=== PATIENT | female | born 1960 | race Caucasian/White ===

== ENCOUNTER 2016-04-05 15:08 | Emergency (ER) | payer OTHER ==
[~2016-04-05] VITALS: Ht 170.2 cm; Wt 136.1 kg
--- NOTE | ~2016-04-05 | EKG ---
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
[~2016-04-05 15:08] MED LIST: ACIDOPHILUS LA1 EACH PO; ADVAIR 500-501 EACH INH; ALBUTEROL SUL5 MG/M1 INH; AMBIEN 10 MG TA10 MG PO; ASPIRIN EC325 M1 PO; ATIVAN0.5 MG PO; BENAZEPRIL HCL40 MG PO; CARAFATE 1 GM TA1 G1 PO; CEFTRIAXON2 GM/50 ML IVPB; CELEXA40 MG PO; CLARITIN10 MG PO; CLONIDINE HCL0.2 M2 PO; COLACE100 MG PO; DILAUDID 2 MG TA2 MG PO; DILAUDID 4 MG TA4 M1 PO; DOXYCYCLINE 10100 MG PO; FENTANYL PATCH75 MCG TRANSDERM; FLEXERIL PO; FLONASE 0.05%50 MCG NASAL; IBUPROFEN 800800 M1 PO; LISINOPRIL2.5 MG; LISINOPRIL40 MG PO; LOPERAMIDE2 MG PO; MUCINEX600 MG PO; NEURONTIN800 MG PO; OXYCODONE HCL15 MG PO; OXYCODONE HCL30 MG PO; PREDNISONE 10 M10 MG PO; PREDNISONE 20 M20 MG PO; PREDNISONE 5 MG5 M1 PO; PRILOSEC 20 MG20 MG PO; PROAIR HFA8.5 GM INH; PROTONIX40 M1 PO; PROVENTIL HFA6.7 G1 INH; PULMICORT0.5 MG/22 INH; RANITIDINE 150150 M1 PO; ROBAFEN DM COU118 ML PO; ROCEPHIN 11 GM/1001 IV; SINGULAIR 10 MG10 MG PO; VALIUM5 MG PO; WELLBUTRIN SR150 MG PO; XARELTO10 MG PO; ZANTAC 150MG T150 M1 PO; ZOFRAN4 MG PO
[2016-04-05 15:34] LABS: ABSOLUTE NEUTROPHILS 5.6 thou/uL (1.4-8.2); BASOPHILS 0.5 % (0.0-2.0); EOSINOPHILS 3.3 % (0.0-3.0); HEMATOCRIT 37.4 % (37.0-47.0); HEMOGLOBIN 12.4 gm/dL (12.0-15.0); LYMPHOCYTES 23.7 % (24.0-44.0); MCH 29.4 pg (26.0-34.0); MCHC 33.1 % (28.0-37.0); MCV 88.8 fL (80.0-100.0); MONOCYTES 7.3 % (1.0-8.0); PLATELET COUNT 213 thou/uL (150-400); POLYS 65.2 % (36.0-66.0); RBC 4.21 mil/uL (4.20-5.00); RDW 14.1 % (10.5-14.5); WBC 8.5 thou/uL (4.0-11.0)
[2016-04-05 15:35] LABS: MANUAL DIFF NO
[2016-04-05 15:42] LABS: ANION GAP 9 mmol/L (7-16); BUN 17 mg/dL (7-18); CHLORIDE 105 mmol/L (98-107); CO2 28 mmol/L (21-32); CREATININE 1.1 mg/dL (0.6-1.3); GLUCOSE 109 mg/dL (70-99); POTASSIUM 4.5 mmol/L (3.5-5.1); SODIUM 142 mmol/L (136-145)
[2016-04-05 15:50] LABS: ALBUMIN 3.3 g/dL (3.4-5.0); ALKALINE PHOSPHATASE 112 U/L (46-116); SGOT 23 U/L (15-37); SGPT 27 U/L (30-65); TOTAL BILIRUBIN 0.3 mg/dL (<0.1-1.0); TOTAL PROTEIN 7.2 g/dL (6.4-8.2); TROPONIN-I < 0.04 ng/mL (<0.04-0.07)
[2016-04-05] MEDS ORDERED: TESSALON PERLE100 MG PO (15:50)
[2016-04-05] MEDS ORDERED: COLACE100 MG PO (15:50)
[2016-04-05] MEDS ORDERED: CATAPRES0.2 M1 PO (15:50)
[2016-04-05] MEDS ORDERED: LIORESAL 10 MG10 MG PO (15:50)
[2016-04-05] MEDS ORDERED: BREO ELLIPTA 11 EACH IH (15:50)
[2016-04-05] MEDS ORDERED: ONDANSETRON HCL4 M2 PO (15:51)
== END 2016-04-05 18:12 | disposition home or self-care (01) ==
LOC: ER 15:08
PROVIDERS: Emergency Medicine
DX: R07.9 Chest pain, unspecified (principal); J45.909 Unspecified asthma, uncomplicated; K21.9 Gastro-esophageal reflux disease without esophagitis; I10 Essential (primary) hypertension; F32.9 Major depressive disorder, single episode, unspecified; F41.9 Anxiety disorder, unspecified; G47.30 Sleep apnea, unspecified; M79.7 Fibromyalgia; Z90.710 Acquired absence of both cervix and uterus; Z88.1 Allergy status to other antibiotic agents; Z88.6 Allergy status to analgesic agent

== ENCOUNTER 2016-09-27 04:43 | Emergency (ER) | payer OTHER ==
[~2016-09-27] VITALS: Ht 175.3 cm; Wt 120.2 kg
[~2016-09-27 04:43] MED LIST changes: +BREO ELLIPTA 11 EACH IH; +CATAPRES0.2 M1 PO; +LIORESAL 10 MG10 MG PO; +ONDANSETRON HCL4 M2 PO; +TESSALON PERLE100 MG PO
[2016-09-27] MEDS ORDERED: MULTI VITAMIN1 EACH PO (05:13)
[2016-09-27] MEDS ORDERED: ZESTRIL40 MG PO (05:13)
[2016-09-27] MEDS ORDERED: NORCO 5-325 TA1 EACH PO (06:13)
== END 2016-09-27 07:36 | disposition home or self-care (01) ==
LOC: ER 04:43
DX: S52.501A Unspecified fracture of the lower end of right radius, initial encounter for closed fracture (principal); S00.12XA Contusion of left eyelid and periocular area, initial encounter; J45.909 Unspecified asthma, uncomplicated; K21.9 Gastro-esophageal reflux disease without esophagitis; I10 Essential (primary) hypertension; F32.9 Major depressive disorder, single episode, unspecified; F41.9 Anxiety disorder, unspecified; M79.7 Fibromyalgia; G47.30 Sleep apnea, unspecified; G89.29 Other chronic pain; Z90.49 Acquired absence of other specified parts of digestive tract; Z90.710 Acquired absence of both cervix and uterus; Z98.890 Other specified postprocedural states; Z90.89 Acquired absence of other organs; Z96.653 Presence of artificial knee joint, bilateral; Z88.8 Allergy status to other drugs, medicaments and biological substances; Z88.1 Allergy status to other antibiotic agents; W01.198A Fall on same level from slipping, tripping and stumbling with subsequent striking against other object, initial encounter; Y93.89 Activity, other specified; Y92.89 Other specified places as the place of occurrence of the external cause; Y99.8 Other external cause status

== ENCOUNTER 2017-03-10 14:56 | Inpatient (IN) | payer OTHER ==
[~2017-03-10] VITALS: Ht 162.6 cm; Wt 149.0 kg
[2017-03-10] VITALS (17 sets, daily range): BP systolic 108–164; BP diastolic 45–113
--- NOTE | ~2017-03-10 | HC ---
[facility] [place] [address] CONSULTATION Name: GEETHA LOTT Room #: 201-P ADM IN M.R.#: [id number] Admission: 03/10/17 Attend Phys: Rich Shelley MD Discharge: Date of : 58 Report #: [id number] THIS REPORT FOR: //name// CC: Rich Wade DATE OF SERVICE: 03/16/2017 HISTORY OF PRESENT ILLNESS: The patient is a 49-year-old white female admitted with COPD exacerbation, pneumonia, coronary artery disease with elevated troponin. She was noted to have acute on chronic respiratory failure, morbid obesity. She is noted to have extensive pulmonary infiltrates, severe right-sided pneumonia with infiltrates noted right greater than left lung. Infectious Disease is involved as well as Pulmonary Medicine. She had acute renal insufficiency, which has resolved. She continues to desaturate with activity. We are seeing her in rehabilitation medicine consultation. PAST MEDICAL HISTORY: Includes morbid obesity. She has a history of gastric bypass, anxiety, depression, bilateral total knee replacements with prior explantation and reimplantation noted, history of fibromyalgia, obstructive sleep apnea on CPAP, asthma, and chronic pain. HABITS: Former tobacco use. No history of alcohol abuse. ALLERGIES: MULTIPLE ALLERGIES ARE NOTED. THESE DO INCLUDE BACTRIM AND TORECAN WELL A CLOTH TAPE AND PAPER TAPE ARE LISTED. MEDICATIONS: Please see the full medication listing. SOCIAL HISTORY: She lives in a house with her , 1 nimesh 2 steps. works during the day. She notes that they are in the process of moving and apparently will be moving next 03/24/2017. She was not on any home O2 premorbidly. Did not utilize gait aids. She notes that she has support with olndxe-nd-bdm, friends, daughter in [place]. REVIEW OF SYSTEMS: No current complaints of chest pain, shortness of breath or abdominal discomfort. PHYSICAL EXAMINATION: GENERAL: A 57-year-old obese white female in no obvious distress. VITAL SIGNS: Last recorded temperature 98.5, pulse 73, respirations 18, blood pressure 170/79. NEUROLOGIC: Alert. She is pleasant. She is a good historian. She is currently on 10 liters. She has been needing up to 10 liters and tends to desaturate some with activity. Facies are symmetric. She has functional range [facility] [address] [place] [address] CONSULTATION Name: GEETHA LOTT Room #: [facility] IN M.R.#: [id number] Admission: 03/10/17 Attend Phys: Rich Shelley MD Discharge: Date of : 58 Report #: [id number] of motion of both upper extremities with strength of grade 4+/5. DTRs are trace to 1. Lower extremities, prior knee incisions are well healed. No focal calf swelling. Tone is intact. Functional range of motion with strength grade 4+/5. Sit to stand is min assist. Gait 5 steps min assist. Again, she does tend to desaturate. ASSESSMENT: A 57-year-old white female with following problems: 1. Pulmonary rehabilitation. 2. Acute on chronic respiratory failure. 3. Severe right-sided pneumonia. 4. Chronic obstructive pulmonary disease exacerbation. 5. Extensive infiltrates, right greater than left lung. 6. Elevated BNP, thought to be multifactorial. 7. Morbid obesity. 8. Acute renal insufficiency that has resolved. 9. Prior bilateral knee replacements. 10. History of prior gastric bypass. 11. Anxiety and depression. 12. Fibromyalgia. 13. Chronic pain syndrome. 14. Sleep apnea. PLAN: The patient certainly could be a candidate for a short acute in-hospital inpatient rehabilitation stay. She is not crazy about going for rehabilitation, but understands that it may be indicated with her considerable medical complexity of the fact she is on significant oxygen and the close followup with the multiple interventional sale consultant physicians. We will consider her for a short acute in-hospital inpatient rehabilitation stay when medically cleared and if she is agreeable. She obviously wants to try to get home before she and her move the end of next week, but will need to see how she improves. We will be glad to follow along with you regarding her rehab therapy needs. At this point, I would anticipate a short acute in-hospital inpatient rehabilitation transfer when medically cleared and if patient is agreeable. <ELECTRONICALLY SIGNED> By: Ko Haas MD 03/20/17 1219 1331 1634 Ko Haas MD /[facility]
--- NOTE | ~2017-03-10 | EKG ---
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 : 1960 Requested By: Hina Tobar Order Number: [id number] MD: Dedrick Max Measurements Intervals [place] Rate: 102 P: 39 [place]: 152 QRS: 26 QRSD: 103 T: -20 QT: 358 QTc: 467 Interpretive Statements Sinus tachycardia Probable left ventricular hypertrophy Borderline T abnormalities, inferior leads Compared to ECG 04/05/2016 15:11:43 T-wave abnormality now present Electronically Signed On 03-10-2017 23:51:27 TOWEL SORTER by Dedrick Max [email or web address] <ELECTRONICALLY SIGNED> By: Dedrick aMx MD 03/10/17 2351 1515 1515 Dedrick Max MD /ZEINAB
--- NOTE | ~2017-03-10 | HC ---
[facility] [place] [address] CONSULTATION Name: GEETHA LOTT Room #: 236-P ADM IN M.R.#: [id number] Admission: 03/10/17 Attend Phys: Rich Shelley MD Discharge: Date of : 58 Report #: [id number] THIS REPORT FOR: //name// CC: Rich Wade TYPE OF REPORT: Pulmonary consultation. PRIMARY CARE PHYSICIAN: Omid Wade M.D. REFERRAL PHYSICIAN: Rich Shelley M.D. REASON FOR REFERRAL: Dyspnea. HISTORY OF PRESENT ILLNESS: The patient is a 57-year-old white female who presents to the Emergency Room with progressive dyspnea. She has been admitted for pneumonia. A pulmonary consultation was requested. The patient is followed longitudinally by Dr. Tito Verduzco. She has been followed for asthma and JIAN. She was last seen in the office in January 2017. She has been doing well until about 3-4 days ago when she started to develop dyspnea, cough and congestion. She called to the office. She was given Ceftin along with prednisone. She did not improve. With worsening symptoms, she presented to Emergency Room. She, otherwise, denies any chest pain, hemoptysis, nausea, vomiting or diarrhea. Chest x-ray performed shows patchy right-sided infiltrates. PAST MEDICAL HISTORY: Remarkable for asthma/COPD, chronic back pain, hypertension and sleep apnea on home CPAP. PAST SURGICAL HISTORY: Includes cholecystectomy; gastric bypass surgery; herniorrhaphy; hysterectomy; total knee replacement, bilateral and herniated disk resection. ALLERGIES: BACTRIM, which causes severe rash and TORECAN causes seizures. HOME MEDICATIONS: Lists are reviewed. This include fentanyl patch, ProAir, Neurontin, citalopram, Lotensin, nebulized albuterol, lorazepam, Flexeril, Dilaudid, Singulair, Protonix, Wellbutrin, Carafate, Lioresal, Breo Ellipta 100/25 mcg 1 puff once a day, clonidine 0.2 mg, Colace, Tessalon Perles, Zofran, Zestril and multivitamins. FAMILY HISTORY: Noncontributory for both parents alive. SOCIAL HISTORY: She has smoked about a pack a day for 20 years. She quit in [address] [address] CONSULTATION Name: GEETHA LOTT Room #: 236-P [facility] IN ..#: [id number] Admission: 03/10/17 Attend Phys: Rich Shelley MD Discharge: Date of : 58 Report #: [id number]. She denies any alcohol use. She is . REVIEW OF SYSTEMS: As mentioned above, otherwise 10-point system review negative. PHYSICAL EXAMINATION: GENERAL: She is awake and alert, in moderate distress. VITAL SIGNS: Temperature is 98.9 degrees Fahrenheit, pulse is 107, respiratory rate is 38 and saturation is 86%. HEENT: Normocephalic and atraumatic. NECK: Supple, without any lymphadenopathy or thyromegaly. CHEST: Breath sounds decreased bilaterally with mild coarse breath sounds. Mild wheezes are heard in both lung kilpatrick. CARDIOVASCULAR: Normal S1 and S2. There are no obvious murmurs or gallop. Pulses are 2+/4+ bilaterally. BREASTS: Exam is deferred. ABDOMEN: Mildly obese, soft and nontender. No organomegaly or masses felt. GENITOURINARY: Deferred. RECTAL: Deferred. EXTREMITIES: There is no edema, cyanosis or clubbing. RADIOLOGICAL DATA: Chest x-ray as mentioned above showing patchy right-sided infiltrates, mild increase in bilateral perihilar interstitial prominence and borderline cardiomegaly. LABORATORY DATA: BNP is 9600. Electrolytes: Sodium 136, potassium 4.9, chloride 103, CO2 26, BUN is 42 and creatinine is 1.5. Liver function enzymes are mildly elevated. WBC 14,900, hemoglobin 11.4 and platelets are normal. Bandemia is present with 10% bands. Arterial blood gas revealed pH 7.38, pCO2 of 42 and pO2 48 on 4 liters of O2. IMPRESSION: 1. Acute hypoxic respiratory failure in this 57-year-old white female. Chest x-ray shows right patchy infiltrates. She has a history of asthma and sleep apnea. Etiology is probably related to pneumonia involving the right lower lobe. The patient should be covered for community-acquired pneumonia. 2. Asthma/chronic obstructive pulmonary disease exacerbation. 3. Obstructive sleep apnea, on home continuous positive airway pressure. 4. Nxfey-nk-pzbhaeo kidney disease, kidney injury. Prior creatinine has been 1.1 though in the past, her creatinine has been higher and today's creatinine is 1.5. 5. Chronic pain. 6. Hypertension. 7. Obesity. RECOMMENDATION: We would suggest broad-spectrum antibiotics to cover for [address] [place] [address] CONSULTATION Name: GEETHA LOTT Room #: 236-P [facility] IN M.R.#: [id number] Admission: 03/10/17 Attend Phys: Rich Shelley MD Discharge: Date of : 58 Report #: [id number] community-acquired pneumonia. Bronchodilators and corticosteroids will be initiated. DVT and GI prophylaxis will also be addressed. Agree with admitting the patient to the ICU given profound hypoxia. The patient does have home CPAP. Mild BiPAP can be used p.r.n. Thank you for this consultation. <ELECTRONICALLY SIGNED> By: Cr Zhou MD 03/12/17 1155 1708 2127 Cr Zhou MD /nt
--- NOTE | ~2017-03-10 | 2DMMODE ---
[facility] [address] [facility] [place] [address] 2 D/M-MODE ECHOCARDIOGRAM Name: GEETHA LOTT Room #: 236-P ADM IN .R.#: [id number] Admission: 03/10/17 Attend Phys: Rich Shelley MD Discharge: Date of : 58 Date of Service: 03/11/17 1457 Report #: [id number] THIS REPORT FOR: //name// APPROVED REPORT Study performed: 03/11/2017 09:49:12 EXAM: Comprehensive 2D, Doppler, and color-flow Echocardiogram Patient Location: Bedside Room #: 236 Status: on-call BSA: 2.34 HR: 100 bpm BP: 152/78 mmHg Rhythm: Tachycardia Other Information Study Quality: Adequate Risk Factors: Cardiac Risk Factors: HTN Indications CAD Chest Pain Elevated Troponin 2D Dimensions LVEF(%): 68.58 (>50%) IVSd: 13.33 (7-11mm) LVOT Diam: 20.00 (18-24mm) LVDd: 40.79 mm PWd: 11.68 (7-11mm) Ascending Ao: 31.73 (22-36mm) LVDs: 25.32 (25-40mm) Aortic Root: 30.63 mm LV Single Plane 4CH: 63.00 % Schmidt's LVEF: 68.58 % Volumes Left Atrial Volume (Systole) Single Plane 4CH: 47.65 mL Single Plane 2CH: 53.94 mL LA ESV Index: 28.00 mL/m2 Aortic Valve AoV Peak Angel.: 1.89 m/s AO Peak Gr.: 14.32 mmHg LVOT Max P.72 mmHg [facility] [address] [place] [address] 2 D/M-MODE ECHOCARDIOGRAM Name: GEETHA LOTT Room #: 236-P [facility] IN ..#: [id number] Admission: 03/10/17 Attend Phys: Rich Shelley MD Discharge: Date of : 58 Date of Service: 03/11/17 1457 Report #: [id number] LVOT Max V: 1.20 m/s CAMILO Vmax: 1.93 cm2 Mitral Valve E/A Ratio: 0.8 MV Decel. Time: 149.83 ms MV E Max Angel.: 1.08 m/s MV A Angel.: 1.37 m/s MV PHT: 43.45 ms IVRT: 51.90 ms TDI E/Lateral E': 9.00 E/Medial E': 9.00 Medial E' Angel.: 0.12 m/s Lateral E' Angel.: 0.12 m/s Pulmonary Valve PV Peak Angel.: 1.26 m/s PV Peak Gr.: 6.35 mmHg Tricuspid Valve RAP Estimate: 10.00 mmHg Left Ventricle The left ventricle is normal size. There is normal LV segmental wall motion. Mild concentric left ventricular hypertrophy. Left ventricular systolic function is normal. The left ventricular ejection fraction is within the normal range. LVEF is 65-70%. Grade I - abnormal relaxation pattern. Right Ventricle The right ventricle is normal size. The right ventricular systolic function is normal. Atria The left atrium size is normal. Right atrium is dilated. Aortic Valve The aortic valve is normal in structure. No aortic regurgitation is present. There is no aortic valvular stenosis. Mitral Valve The mitral valve is normal in structure. There is no mitral valve regurgitation noted. No evidence of mitral valve stenosis. Tricuspid Valve The tricuspid valve is normal in structure. There is no tricuspid [facility] [address] [place] [address] 2 D/M-MODE ECHOCARDIOGRAM Name: GEETHA LOTT Room #: 236-P [facility] IN ..#: [id number] Admission: 03/10/17 Attend Phys: Rich Shelley MD Discharge: Date of : 58 Date of Service: 03/11/17 1457 Report #: [id number] valve regurgitation noted. Pulmonic Valve The pulmonary valve is normal in structure. There is no pulmonic valvular regurgitation. Great Vessels The aortic root is normal in size. IVC is normal in size and collapses <50% with inspiration. Pericardium There is no pericardial effusion. <Conclusion> The left ventricle is normal size. LVEF is 65-70%. Right atrium is dilated. The aortic valve is normal in structure. The mitral valve is normal in structure. The tricuspid valve is normal in structure. The pulmonary valve is normal in structure. There is no pericardial effusion. <ELECTRONICALLY SIGNED> By: Isaías Logan MD 03/11/17 1457 145 145 Isaías Logan MD /INF
--- NOTE | ~2017-03-10 | HC ---
[facility] [place] [address] CONSULTATION Name: GEETHA LOTT Room #: 236-P ADM IN M.R.#: [id number] Admission: 03/10/17 Attend Phys: Rich Shelley MD Discharge: Date of : 58 Report #: [id number] THIS REPORT FOR: //name// CC: Rich Wade MD DATE OF SERVICE: 03/13/2017 ATTENDING PHYSICIAN: Dr. Shelley. CONSULTATION REQUESTED BY: Dr. Zhou. REASON FOR CONSULTATION: Pneumonia. HISTORY OF PRESENT ILLNESS: This is a 57-year-old white woman admitted through the emergency room with history of progressive difficulty in breathing and failure to improve on an outpatient basis after treatment with Z-ELIE and a Medrol Dosepak. The patient is diagnosed to have right-sided pneumonia. She is treated with a combination of Rocephin a gram daily and Zithromax 500 mg daily. I discussed the patient's situation with her nurse yesterday, added vancomycin, and requested several tests. The patient relates she is feeling some better, still requiring high flow supplemental oxygen. She denies having had fevers during the entire episode, relates this problem ongoing for several weeks now. She relates she has chronic lung disease and Dr. 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 ALLERGIES: SULFA DRUGS, BACTRIM, and TAPE. MEDICATIONS: She is currently on treatment with vancomycin 1 g IV every 8 hours, ceftriaxone 1 g IV daily since March 11, and again on Zithromax 500 mg IV daily since the of the month. She is also on treatment with guaifenesin, amlodipine, hydralazine p.r.n., fentanyl patch 75 mcg every 72 hours for chronic back pain, lorazepam p.r.n., multivitamin daily, montelukast, bupropion, famotidine, pantoprazole, gabapentin, Solu-Medrol 80 mg IV every 8 hours, metoclopramide, Carafate, docusate, citalopram, lisinopril, clonidine, enoxaparin subq, ondansetron p.r.n., Atrovent, albuterol inhalation treatments, zolpidem p.r.n., hydrocodone p.r.n., baclofen 3 times daily 10 mg, cyclobenzaprine 10 mg q.4h p.r.n., intravenous fluids, p.r.n. glucose glucagon. PAST MEDICAL HISTORY: Morbid obesity. History of gastric bypass surgery. Obstructive sleep apnea. Hysterectomy. Bilateral total knee replacement, right total knee replacement infection with ____, requiring multiple surgical interventions. Chronic back pain, requiring narcotics. [address] [address] CONSULTATION Name: GEETHA LOTT Room #: 236-P [facility] IN M.R.#: [id number] Admission: 03/10/17 Attend Phys: Rich Shelley MD Discharge: Date of : 58 Report #: [id number] SOCIAL HISTORY: See H and P, old records. FAMILY HISTORY: See H and P, old records. REVIEW OF SYSTEMS: Essentially noncontributory besides the chronic pain and respiratory issues. PHYSICAL EXAMINATION: GENERAL: Chronically ill-appearing woman, afebrile since admission. VITAL SIGNS: Temperature 97, pulse 87, respirations 20, BP 152/65, height 5 feet 4 inches, and weight 309 pounds. HEENT: Pupils reactive. Conjunctivae are normal. Mouth, edentulous, wearing artificial teeth, none at present. NECK: Short, difficult to examine, no palpable masses on the thyroid, no lymphadenopathy. LUNGS: Decreased breath sounds and bronchial breath sounds right lung and upper lung kilpatrick posteriorly. HEART: S1, S2. No gallop or murmur. ABDOMEN: Obese, soft, no masses or megaly, surgical scar. PELVIC: Deferred. RECTAL: Deferred. EXTREMITIES: Reveal surgical scars both knees. The right knee scar compatible with multiple previous surgical interventions. NEUROLOGIC: Grossly within normal limits. LABORATORY DATA: On admission, BUN 42, creatinine 1.5, repeat today, BUN is 30, creatinine 1, glucose 165. Troponin elevated on admission. NT-proBNP elevated on admission 9655. WBC on admission 14,900, hemoglobin 11.4 g/dL, repeat today the white blood cell count is 11,400 and hemoglobin 10.4 g/dL, platelets 179,000, white blood cell count differential revealed 84% segmented neutrophils. TSH normal. Hemoglobin A1c normal. Procalcitonin elevated at 12.179 ng/mL, elevated. The MRSA screen requested pending. ABGs on March 10, revealed pH 7.38, pCO2 of 42, pO2 48, and bicarbonate 24, these set of gases on 4 liters oxygen nasal cannula. MICROBIOLOGY DATA: The blood cultures negative. The urine legionella antigen not detected. Urine Streptococcus pneumoniae antigen not detected. A sputum Gram stain revealed many WBC's, no organism. RADIOLOGY EVALUATION: The chest x-ray revealed cardiomegaly and worsening right-sided pulmonary infiltrate and atelectasis. ASSESSMENT: 1. Worsening right-sided pulmonary infiltrate, atelectasis. 2. Chronic obstructive pulmonary disease. 3. Obstructive sleep apnea. [address] [address] CONSULTATION Name: GEETHA LOTT Room #: 236-P ADM IN M.R.#: [id number] Admission: 03/10/17 Attend Phys: Rich Shelley MD Discharge: Date of : 58 Report #: [id number] 4. Acute kidney injury on chronic kidney disease, improved. 5. Hypertension. 6. Chronic pain syndrome. 7. Elevation of serum troponin. 8. Elevation of BNP and normal ejection fraction, suspect diastolic heart failure. SUGGESTIONS: Recommend continue coverage with vancomycin, repeat MRSA screen as already requested to nurse and apparently not done yet. Being the Streptococcus pneumoniae and legionella antigen negative, doubt we are dealing with that kind of infection. Of course, we can have aspiration pneumonia in a patient with chronic narcotic dependency and obstructive sleep apnea. We will discontinue Rocephin and start meropenem 500 mg IV every 8 hours. We will discuss situation with Dr. Zhou her pulmonary physician following the patient now and try to determine whether bronchoscopy may be in order. Dr. Cr Zhou and Dr. Shelley, thank you for requesting my suggestions in the care of your patient. <ELECTRONICALLY SIGNED> By: Chandrakant Max MD 03/14/17 1032 0952 1135 Chandrakant Mxa MD /nt
[~2017-03-10 14:56] MED LIST changes: +MULTI VITAMIN1 EACH PO; +NORCO 5-325 TA1 EACH PO; +ZESTRIL40 MG PO
[2017-03-10 15:35] LABS: ABG SAMPLE TYPE ARTERIAL; BE(vivo) -0.4 mmol/L (-2 to +3); HCO3 24.7 mmol/L (22.0-26.0); LACTATE 2.06 mmol/L (0.5-2.0); O2(CT) 14.3 mL/dL (15.0-23.0); O2Hb 83.3 % (92.0-98.0); PCO2 42.3 mmHg (35.0-45.0); PO2 48.1 mmHg (80.0-100.0); STICK SITE L.BRACHIAL; pH 7.384 (7.360-7.450); sO2 83.3 % (92.0-98.0)
[2017-03-10 15:40] LABS: HEMATOCRIT 34.9 % (37.0-47.0); HEMOGLOBIN 11.4 gm/dL (12.0-15.0); MANUAL DIFF YES; MCH 28.4 pg (26.0-34.0); MCHC 32.5 g/dL (28.0-37.0); MCV 87.5 fL (80.0-100.0); PLATELET COUNT 208 thou/uL (150-400); RBC 3.99 mil/uL (4.20-5.00); RDW 15.4 % (10.5-14.5); WBC 14.9 thou/uL (4.0-11.0)
[2017-03-10 15:57] LABS: CALCIUM 8.9 mg/dL (8.5-10.1); CREATININE 1.5 mg/dL (0.6-1.0); POTASSIUM 4.9 mmol/L (3.5-5.1)
[2017-03-10 16:00] LABS: ALBUMIN 2.8 g/dL (3.4-5.0); TOTAL BILIRUBIN 0.4 mg/dL (<0.1-1.0); TOTAL PROTEIN 7.4 g/dL (6.4-8.2)
[2017-03-10 16:05] LABS: TROPONIN-I 1.11 ng/mL (<0.06)
[2017-03-10 16:10] LABS: ABSOLUTE NEUTROPHILS 12.8 thou/uL (1.4-8.2); TOTAL CELL COUNT 100
[2017-03-11] VITALS (33 sets, daily range): BP systolic 113–163; BP diastolic 60–84
[2017-03-11 03:31] LABS: ABSOLUTE NEUTROPHILS 9.9 thou/uL (1.4-8.2); BASOPHILS 0.2 % (0.0-2.0); EOSINOPHILS 0.1 % (0.0-3.0); HEMATOCRIT 33.6 % (37.0-47.0); HEMOGLOBIN 10.9 gm/dL (12.0-15.0); LYMPHOCYTES 9.5 % (24.0-44.0); MCH 28.2 pg (26.0-34.0); MCHC 32.3 g/dL (28.0-37.0); MCV 87.4 fL (80.0-100.0); MONOCYTES 2.6 % (1.0-8.0); PLATELET COUNT 189 thou/uL (150-400); POLYS 87.6 % (36.0-66.0); RBC 3.85 mil/uL (4.20-5.00); RDW 15.3 % (10.5-14.5); WBC 11.3 thou/uL (4.0-11.0)
[2017-03-11 03:32] LABS: MANUAL DIFF NO
[2017-03-11 03:36] LABS: CALCIUM 8.8 mg/dL (8.5-10.1); CREATININE 1.3 mg/dL (0.6-1.0); POTASSIUM 4.6 mmol/L (3.5-5.1)
[2017-03-11 05:09] LABS: GLYCOHEMOGLOBIN (HGB A1C) 5.5 % (4.8-5.6)
[2017-03-12] VITALS (27 sets, daily range): BP systolic 124–175; BP diastolic 42–90
[2017-03-12 06:52] LABS: HEMATOCRIT 33.6 % (37.0-47.0); HEMOGLOBIN 10.9 gm/dL (12.0-15.0); MCH 28.1 pg (26.0-34.0); MCHC 32.3 g/dL (28.0-37.0); MCV 87.1 fL (80.0-100.0); PLATELET COUNT 188 thou/uL (150-400); RBC 3.86 mil/uL (4.20-5.00); RDW 15.9 % (10.5-14.5); WBC 13.1 thou/uL (4.0-11.0)
[2017-03-12 06:57] LABS: MANUAL DIFF YES
[2017-03-12 07:06] LABS: CALCIUM 9.2 mg/dL (8.5-10.1); POTASSIUM 4.3 mmol/L (3.5-5.1)
[2017-03-12 10:13] LABS: ABSOLUTE NEUTROPHILS 11.4 thou/uL (1.4-8.2); ANISOCYTOSIS 1+; TOTAL CELL COUNT 100
[2017-03-13] VITALS (25 sets, daily range): BP systolic 94–186; BP diastolic 58–100
[2017-03-13 05:02] LABS: ABSOLUTE NEUTROPHILS 9.6 thou/uL (1.4-8.2); BASOPHILS 0.1 % (0.0-2.0); EOSINOPHILS 0.1 % (0.0-3.0); HEMATOCRIT 32.9 % (37.0-47.0); HEMOGLOBIN 10.4 gm/dL (12.0-15.0); LYMPHOCYTES 9.2 % (24.0-44.0); MCH 27.6 pg (26.0-34.0); MCHC 31.5 g/dL (28.0-37.0); MCV 87.6 fL (80.0-100.0); MONOCYTES 6.3 % (1.0-8.0); PLATELET COUNT 179 thou/uL (150-400); POLYS 84.3 % (36.0-66.0); RBC 3.76 mil/uL (4.20-5.00); RDW 16.2 % (10.5-14.5); WBC 11.4 thou/uL (4.0-11.0)
[2017-03-13 05:04] LABS: MANUAL DIFF NO
[2017-03-13 05:07] LABS: CALCIUM 8.6 mg/dL (8.5-10.1); POTASSIUM 4.6 mmol/L (3.5-5.1)
[2017-03-14] VITALS (21 sets, daily range): BP systolic 124–180; BP diastolic 61–90
[2017-03-14 05:17] LABS: WBC 12.4 thou/uL (4.0-11.0)
[2017-03-14 05:19] LABS: HEMATOCRIT 32.7 % (37.0-47.0); HEMOGLOBIN 10.7 gm/dL (12.0-15.0); MCH 28.7 pg (26.0-34.0); MCHC 32.8 g/dL (28.0-37.0); MCV 87.4 fL (80.0-100.0); PLATELET COUNT 186 thou/uL (150-400); RBC 3.74 mil/uL (4.20-5.00); RDW 15.5 % (10.5-14.5)
[2017-03-14 05:20] LABS: MANUAL DIFF YES
[2017-03-14 05:26] LABS: CALCIUM 8.6 mg/dL (8.5-10.1); CREATININE 0.8 mg/dL (0.6-1.0); POTASSIUM 4.9 mmol/L (3.5-5.1)
[2017-03-14 05:35] LABS: ABG SAMPLE TYPE ARTERIAL; BE(vivo) 0.8 mmol/L (-2 to +3); HCO3 26.3 mmol/L (22.0-26.0); LACTATE 1.25 mmol/L (0.5-2.0); O2(CT) 14.9 mL/dL (15.0-23.0); O2Hb 89.6 % (92.0-98.0); PCO2 45.5 mmHg (35.0-45.0); PO2 60.3 mmHg (80.0-100.0); pH 7.379 (7.360-7.450); sO2 90.5 % (92.0-98.0); tCO2 27.6 mmol/L (24.0-30.0)
[2017-03-14 05:41] LABS: STICK SITE L.RADIAL
[2017-03-14 07:16] LABS: ABSOLUTE NEUTROPHILS 8.8 thou/uL (1.4-8.2); ANISOCYTOSIS SLIGHT; ATYPICAL LYMPHS 1 %; METAMYELOCYTES 4 %; MYELOCYTES 2 %; NUCLEATED RBCS 2 /100WBC; TOTAL CELL COUNT 100
[2017-03-15 03:10] VITALS: BP 172/73
[2017-03-15 05:24] LABS: HEMATOCRIT 34.1 % (37.0-47.0); HEMOGLOBIN 10.9 gm/dL (12.0-15.0); MCH 27.6 pg (26.0-34.0); MCHC 31.8 g/dL (28.0-37.0); MCV 86.8 fL (80.0-100.0); PLATELET COUNT 211 thou/uL (150-400); RBC 3.93 mil/uL (4.20-5.00); RDW 15.8 % (10.5-14.5); WBC 14.3 thou/uL (4.0-11.0)
[2017-03-15 05:26] LABS: MANUAL DIFF YES
[2017-03-15 05:31] LABS: CALCIUM 8.6 mg/dL (8.5-10.1); CREATININE 0.8 mg/dL (0.6-1.0); POTASSIUM 4.9 mmol/L (3.5-5.1)
[2017-03-15 07:07] VITALS: BP 173/70
[2017-03-15 08:00] LABS: ABSOLUTE NEUTROPHILS 11.4 thou/uL (1.4-8.2); ANISOCYTOSIS 1+; METAMYELOCYTES 3 %; MYELOCYTES 2 %; TOTAL CELL COUNT 100
[2017-03-15 08:01] LABS: POLYCHROMASIA OCCASIONAL
[2017-03-15 11:41] VITALS: BP 141/64
[2017-03-15 15:03] VITALS: BP 138/79
[2017-03-15 20:02] VITALS: BP 153/82
[2017-03-16 04:46] LABS: HEMATOCRIT 33.8 % (37.0-47.0); HEMOGLOBIN 10.9 gm/dL (12.0-15.0); MCH 28.2 pg (26.0-34.0); MCHC 32.3 g/dL (28.0-37.0); MCV 87.2 fL (80.0-100.0); RBC 3.88 mil/uL (4.20-5.00); RDW 15.9 % (10.5-14.5); WBC 17.2 thou/uL (4.0-11.0)
[2017-03-16 04:47] VITALS: BP 138/83
[2017-03-16 05:02] LABS: CALCIUM 8.6 mg/dL (8.5-10.1); CREATININE 0.7 mg/dL (0.6-1.0)
[2017-03-16 07:02] VITALS: BP 149/82
[2017-03-16 11:53] VITALS: BP 170/79
[2017-03-16 16:00] VITALS: BP 164/69
[2017-03-16 19:16] VITALS: BP 197/95
[2017-03-17 00:18] VITALS: BP 153/80
[2017-03-17 03:44] VITALS: BP 134/72
[2017-03-17 04:50] LABS: ABSOLUTE NEUTROPHILS 14.9 thou/uL (1.4-8.2); HEMATOCRIT 35.7 % (37.0-47.0); HEMOGLOBIN 11.4 gm/dL (12.0-15.0); LYMPHOCYTES 7.6 % (24.0-44.0); MCH 28.2 pg (26.0-34.0); MCHC 31.9 g/dL (28.0-37.0); MCV 88.3 fL (80.0-100.0); MONOCYTES 3.3 % (1.0-8.0); PLATELET COUNT 238 thou/uL (150-400); POLYS 89.1 % (36.0-66.0); RBC 4.04 mil/uL (4.20-5.00); WBC 16.7 thou/uL (4.0-11.0)
[2017-03-17 05:37] LABS: MANUAL DIFF NO
[2017-03-17 05:41] LABS: CALCIUM 8.5 mg/dL (8.5-10.1); CREATININE 0.8 mg/dL (0.6-1.0)
[2017-03-17 07:10] VITALS: BP 151/79
[2017-03-17 11:02] VITALS: BP 117/54
[2017-03-17 15:06] VITALS: BP 159/95
[2017-03-17 19:30] VITALS: BP 166/78
[2017-03-18 02:39] LABS: CALCIUM 8.7 mg/dL (8.5-10.1); CREATININE 0.8 mg/dL (0.6-1.0); POTASSIUM 5.2 mmol/L (3.5-5.1)
[2017-03-18 02:41] LABS: HEMATOCRIT 37.2 % (37.0-47.0); HEMOGLOBIN 11.8 gm/dL (12.0-15.0); MCH 27.9 pg (26.0-34.0); MCHC 31.7 g/dL (28.0-37.0); PLATELET COUNT 269 thou/uL (150-400); RBC 4.23 mil/uL (4.20-5.00); RDW 15.8 % (10.5-14.5); WBC 17.7 thou/uL (4.0-11.0)
[2017-03-18 02:42] LABS: MANUAL DIFF YES
[2017-03-18 04:00] VITALS: BP 137/74
[2017-03-18 04:36] LABS: ABSOLUTE NEUTROPHILS 16.6 thou/uL (1.4-8.2); METAMYELOCYTES 1 %; TOTAL CELL COUNT 100
[2017-03-18 08:18] VITALS: BP 157/90
[2017-03-18 11:50] VITALS: BP 157/81
[2017-03-18 15:30] VITALS: BP 145/88
[2017-03-18 18:52] VITALS: BP 177/97
[2017-03-19 02:52] VITALS: BP 135/77
[2017-03-19 04:07] LABS: HEMATOCRIT 33.9 % (37.0-47.0); MCH 28.5 pg (26.0-34.0); MCHC 32.4 g/dL (28.0-37.0); PLATELET COUNT 207 thou/uL (150-400); RBC 3.85 mil/uL (4.20-5.00); RDW 16.1 % (10.5-14.5); WBC 12.7 thou/uL (4.0-11.0)
[2017-03-19 04:08] LABS: MANUAL DIFF YES
[2017-03-19 04:28] LABS: CALCIUM 8.4 mg/dL (8.5-10.1); CREATININE 0.8 mg/dL (0.6-1.0); POTASSIUM 4.7 mmol/L (3.5-5.1)
[2017-03-19 04:56] LABS: ABSOLUTE NEUTROPHILS 11.3 thou/uL (1.4-8.2); ANISOCYTOSIS 1+; LARGE PLATELETS OCCASIONAL; POLYCHROMASIA OCCASIONAL; TOTAL CELL COUNT 100
[2017-03-19 09:09] VITALS: BP 133/78
[2017-03-19 11:30] VITALS: BP 148/88
[2017-03-19 16:00] VITALS: BP 158/73
[2017-03-19 19:17] VITALS: BP 146/83
[2017-03-20 04:00] VITALS: BP 137/90
[2017-03-20 07:59] VITALS: BP 114/62
[2017-03-20] MEDS ORDERED: PREDNISONE 20 M20 M1 PO ×2 (10:23→15:04)
[2017-03-20 12:08] VITALS: BP 121/59
[2017-03-20 14:04] VITALS: BP 121/59
[2017-03-22 01:11] LABS: INFLUENZA B Negative (Negative); METAPNEUMOVIRUS Negative (Negative)
== END 2017-03-20 15:10 | disposition home health service (06) | DRG 177 ==
LOC: ER 14:56 → EROBS 16:20 → ICU 16:20 → 2N 03-14 15:14
PROVIDERS: Family Medicine; Internal Medicine Endocrinology, Diabetes & Metabolism; Internal Medicine Pulmonary Disease; Nurse Practitioner Family; Specialist
PROC: 05HB33Z Insertion of Infusion Device into Right Basilic Vein, Percutaneous Approach (ICD-10-PCS; principal; 2017-03-12)
PROC: B54MZZA Ultrasonography of Right Upper Extremity Veins, Guidance (ICD-10-PCS; principal; 2017-03-12)
PROC: 5A09357 Assistance with Respiratory Ventilation, Less than 24 Consecutive Hours, Continuous Positive Airway Pressure (ICD-10-PCS; 2017-03-14)
PROC: 5A09357 Assistance with Respiratory Ventilation, Less than 24 Consecutive Hours, Continuous Positive Airway Pressure (ICD-10-PCS; 2017-03-15)
PROC: 5A09357 Assistance with Respiratory Ventilation, Less than 24 Consecutive Hours, Continuous Positive Airway Pressure (ICD-10-PCS; 2017-03-16)
PROC: 5A09357 Assistance with Respiratory Ventilation, Less than 24 Consecutive Hours, Continuous Positive Airway Pressure (ICD-10-PCS; 2017-03-17)
PROC: 5A09357 Assistance with Respiratory Ventilation, Less than 24 Consecutive Hours, Continuous Positive Airway Pressure (ICD-10-PCS; 2017-03-18)
PROC: 5A09357 Assistance with Respiratory Ventilation, Less than 24 Consecutive Hours, Continuous Positive Airway Pressure (ICD-10-PCS; 2017-03-19)
PROC: 5A09357 Assistance with Respiratory Ventilation, Less than 24 Consecutive Hours, Continuous Positive Airway Pressure (ICD-10-PCS; 2017-03-20)
DX: J69.0 Pneumonitis due to inhalation of food and vomit (principal); J96.21 Acute and chronic respiratory failure with hypoxia; N17.9 Acute kidney failure, unspecified; J44.1 Chronic obstructive pulmonary disease with (acute) exacerbation; Z68.43 Body mass index [BMI] 50.0-59.9, adult; J98.11 Atelectasis; J45.901 Unspecified asthma with (acute) exacerbation; K21.9 Gastro-esophageal reflux disease without esophagitis; F41.9 Anxiety disorder, unspecified; F32.9 Major depressive disorder, single episode, unspecified; G89.29 Other chronic pain; N18.9 Chronic kidney disease, unspecified; M54.9 Dorsalgia, unspecified; G47.33 Obstructive sleep apnea (adult) (pediatric); E66.01 Morbid (severe) obesity due to excess calories; Z96.653 Presence of artificial knee joint, bilateral; M79.7 Fibromyalgia; I12.9 Hypertensive chronic kidney disease with stage 1 through stage 4 chronic kidney disease, or unspecified chronic kidney disease; Z79.899 Other long term (current) drug therapy; Z88.1 Allergy status to other antibiotic agents; Z88.8 Allergy status to other drugs, medicaments and biological substances; Z90.49 Acquired absence of other specified parts of digestive tract; Z98.84 Bariatric surgery status; Z90.710 Acquired absence of both cervix and uterus; Z87.891 Personal history of nicotine dependence; Z88.2 Allergy status to sulfonamides; Z82.49 Family history of ischemic heart disease and other diseases of the circulatory system; Z91.09 Other allergy status, other than to drugs and biological substances
CPT/HCPCS: 10078; 10081; 27000

== ENCOUNTER → 2017-06-07 | Outpatient (CLI) | payer OTHER ==
[~2017-06-07] MED LIST changes: +PREDNISONE 20 M20 M1 PO
== END ==
LOC: RAD 12:41
DX: I51.7 Cardiomegaly (principal)

== ENCOUNTER 2018-03-05 14:34 | Inpatient (IN) | payer OTHER ==
[~2018-03-05] VITALS: Ht 170.2 cm; Wt 137.0 kg
[2018-03-05 15:18] VITALS: BP 151/81
[2018-03-05 16:47] LABS: ABSOLUTE NEUTROPHILS 7.8 thou/uL (1.4-8.2); BASOPHILS 0.1 % (0.0-2.0); EOSINOPHILS 0.2 % (0.0-3.0); HEMATOCRIT 37.9 % (37.0-47.0); HEMOGLOBIN 12.5 gm/dL (12.0-15.0); MCH 29.2 pg (26.0-34.0); MCHC 33.1 g/dL (28.0-37.0); MCV 88.2 fL (80.0-100.0); MONOCYTES 8.7 % (1.0-8.0); PLATELET COUNT 203 thou/uL (150-400); RDW 15.5 % (10.5-14.5); WBC 10.5 thou/uL (4.0-11.0)
[2018-03-05 17:01] LABS: CALCIUM 9.2 mg/dL (8.5-10.1); CREATININE 0.9 mg/dL (0.6-1.0); MAGNESIUM 1.7 mg/dL (1.8-2.4); POTASSIUM 3.9 mmol/L (3.5-5.1); TOTAL BILIRUBIN 0.5 mg/dL (<0.1-1.0); TOTAL PROTEIN 7.6 g/dL (6.4-8.2)
[2018-03-05 20:11] LABS: URINE BILIRUBIN NEGATIVE (Negative); URINE BLOOD NEGATIVE (Negative); URINE CLARITY CLEAR; URINE COLOR YELLOW; URINE GLUCOSE-RANDOM* NEGATIVE (Negative); URINE KETONES NEGATIVE (Negative); URINE LEUKOCYTES-REFLEX NEGATIVE (Negative); URINE NITRITE-REFLEX NEGATIVE (Negative); URINE PROTEIN (DIPSTICK) NEGATIVE (Negative); URINE SPECIFIC GRAVITY <= 1.005 (1.005-1.035); URINE UROBILINOGEN 0.2 E.U./dl (0.2-1.0)
[2018-03-05 20:16] VITALS: BP 134/92
[2018-03-05] MEDS ORDERED: ASPIR 8181 M1 PO (20:25)
[2018-03-05] MEDS ORDERED: TESSALON PERLE100 MG PO (20:25)
[2018-03-05] MEDS ORDERED: BUSPIRONE HCL10 MG PO (20:26)
[2018-03-05] MEDS ORDERED: CYMBALTA30 MG PO (20:26)
[2018-03-05] MEDS ORDERED: FLONASE 0.05%50 MCG NASAL (20:27)
[2018-03-05] MEDS ORDERED: ZANTAC 150MG T150 MG PO (20:28)
[2018-03-05] MEDS ORDERED: ADVAIR HFA 230M12 GM INH (20:28)
[2018-03-05] MEDS ORDERED: LEVOTHYROXINE100 MC1 PO (20:30)
[2018-03-05] MEDS ORDERED: VITAMIN D5000 UNIT PO (20:31)
[2018-03-05 23:31] VITALS: BP 144/87
[2018-03-06 03:14] VITALS: BP 112/80
[2018-03-06 03:24] LABS: CALCIUM 8.9 mg/dL (8.5-10.1); CREATININE 1.1 mg/dL (0.6-1.0); MAGNESIUM 2.2 mg/dL (1.8-2.4); POTASSIUM 4.4 mmol/L (3.5-5.1)
[2018-03-06 04:22] LABS: HEMATOCRIT 34.1 % (37.0-47.0); HEMOGLOBIN 11.2 gm/dL (12.0-15.0); MCH 29.3 pg (26.0-34.0); MCHC 32.8 g/dL (28.0-37.0); MCV 89.2 fL (80.0-100.0); RBC 3.82 mil/uL (4.20-5.00); RDW 15.3 % (10.5-14.5); WBC 8.9 thou/uL (4.0-11.0)
[2018-03-06 07:13] VITALS: BP 121/68
[2018-03-06 11:37] VITALS: BP 118/66
[2018-03-06 15:41] VITALS: BP 125/67
[2018-03-06 20:14] VITALS: BP 110/61
[2018-03-07 04:10] VITALS: BP 140/77
[2018-03-07 05:47] LABS: HEMATOCRIT 34.5 % (37.0-47.0); MCH 28.3 pg (26.0-34.0); MCHC 31.9 g/dL (28.0-37.0); MCV 88.5 fL (80.0-100.0); RBC 3.9 mil/uL (4.20-5.00); RDW 15.2 % (10.5-14.5); WBC 12.2 thou/uL (4.0-11.0)
[2018-03-07 06:00] LABS: CALCIUM 9.7 mg/dL (8.5-10.1); CREATININE 0.8 mg/dL (0.6-1.0); MAGNESIUM 2.3 mg/dL (1.8-2.4); POTASSIUM 4.6 mmol/L (3.5-5.1)
[2018-03-07 08:03] VITALS: BP 118/67
[2018-03-07 12:00] VITALS: BP 108/57
[2018-03-07 16:25] VITALS: BP 110/60
[2018-03-07 19:30] VITALS: BP 114/53
[2018-03-08 03:25] VITALS: BP 135/80
[2018-03-08 06:01] LABS: HEMATOCRIT 35.2 % (37.0-47.0); HEMOGLOBIN 11.2 gm/dL (12.0-15.0); MCH 28.5 pg (26.0-34.0); MCV 89.2 fL (80.0-100.0); RBC 3.94 mil/uL (4.20-5.00); RDW 15.3 % (10.5-14.5); WBC 10.4 thou/uL (4.0-11.0)
[2018-03-08 06:02] LABS: CALCIUM 9.1 mg/dL (8.5-10.1); MAGNESIUM 2.1 mg/dL (1.8-2.4); POTASSIUM 4.2 mmol/L (3.5-5.1)
[2018-03-08 07:44] VITALS: BP 127/64
[2018-03-08] MEDS ORDERED: PREDNISONE 10 M10 MG PO (13:05)
[2018-03-08 13:15] VITALS: BP 127/64
[2018-03-08 19:07] LABS: ANA INTERPRETATION Negative (())
[2018-03-09 06:08] LABS: ADENOVIRUS Negative (Negative); INFLUENZA A Negative (Negative); INFLUENZA B Negative (Negative); METAPNEUMOVIRUS Positive (Negative); PARAINFLUENZA 1 Negative (Negative); PARAINFLUENZA 2 Negative (Negative); PARAINFLUENZA 3 Negative (Negative); RHINOVIRUS Negative (Negative); RSV A Negative (Negative); RSV B Negative (Negative)
== END 2018-03-08 15:00 | disposition home or self-care (01) | DRG 871 ==
LOC: 3W 14:34
PROVIDERS: Internal Medicine; Nurse Practitioner; Pediatrics
DX: A41.9 Sepsis, unspecified organism (principal); J18.1 Lobar pneumonia, unspecified organism; J44.1 Chronic obstructive pulmonary disease with (acute) exacerbation; J96.11 Chronic respiratory failure with hypoxia; J44.0 Chronic obstructive pulmonary disease with (acute) lower respiratory infection; G89.4 Chronic pain syndrome; G47.33 Obstructive sleep apnea (adult) (pediatric); F41.9 Anxiety disorder, unspecified; F32.9 Major depressive disorder, single episode, unspecified; Z96.653 Presence of artificial knee joint, bilateral; K21.9 Gastro-esophageal reflux disease without esophagitis; I10 Essential (primary) hypertension; E03.9 Hypothyroidism, unspecified; M79.7 Fibromyalgia; Z79.899 Other long term (current) drug therapy; Z88.2 Allergy status to sulfonamides; Z88.8 Allergy status to other drugs, medicaments and biological substances; Z90.49 Acquired absence of other specified parts of digestive tract; Z90.710 Acquired absence of both cervix and uterus; Z98.84 Bariatric surgery status; Z82.49 Family history of ischemic heart disease and other diseases of the circulatory system; Z87.891 Personal history of nicotine dependence; Z99.81 Dependence on supplemental oxygen
CPT/HCPCS: 10879